=== PATIENT | female | born 1945 | race Caucasian/White ===

== ENCOUNTER 2017-08-11 19:24 | Emergency (ER) | payer MEDICARE ==
[2017-08-11 20:13] VITALS: BP 114/62
[2017-08-11] MEDS ORDERED: TYLENOL PO ONE (20:14)
--- NOTE | 2017-08-11 23:20 | Emergency Department Report ---
ED Extremity Problem HPI - General Chief complaint: Extremity Problem,Nontraumatic Stated complaint: RT SHOULDER PAIN Time Seen by Provider: 08/11/17 22:18 Source: patient, EMS Mode of arrival: Stretcher Limitations: Physical Limitation - History of Present Illness Initial comments: Patient is a 71-year-old [place] lady who had surgery yesterday on her right shoulder. Patient with who was at home today she feels though she moved her shoulder is worried that is dislocated again. Patient is taking pain medicines her main complaint today is not pain she is mostly sure shoulder is fine. Severity scale (0 -10): 9 - Related Data Allergies Allergy/AdvReac Type Severity Reaction Status Date / Time No Known Allergies Allergy Unverified 08/11/17 19:56 ED Review of Systems ROS: Stated complaint: RT SHOULDER PAIN Other details as noted in HPI Comment: All other systems reviewed and negative ED Past Medical Hx - Past Medical History Previous Medical History?: Yes Hx Hypertension: Yes Hx CVA: Yes (Right side deficits) Additional medical history: high cholesterol - Surgical History Past Surgical History?: Yes Additional Surgical History: Right shoulder sx 08/10/17 - Social History Smoking Status: Never Smoker Substance Use Type: None ED Physical Exam - General Limitations: Physical Limitation General appearance: alert, in no apparent distress - Head Head exam: Present: atraumatic, normocephalic - Eye Eye exam: Present: normal appearance - ENT ENT exam: Present: mucous membranes moist - Neck Neck exam: Present: normal inspection - Respiratory Respiratory exam: Present: normal lung sounds bilaterally. Absent: respiratory distress - Cardiovascular Cardiovascular Exam: Present: regular rate, normal rhythm. Absent: systolic murmur, diastolic murmur, rubs, gallop - GI/Abdominal GI/Abdominal exam: Present: soft, normal bowel sounds - Extremities Exam Extremities exam: Present: normal inspection (there is no deltoid deformity to the right shoulder is bandaged) - Back Exam Back exam: Present: normal inspection - Neurological Exam Neurological exam: Present: alert, oriented X3 - Psychiatric Psychiatric exam: Present: normal affect, normal mood - Skin Skin exam: Present: warm, dry, intact, normal color. Absent: rash ED Course Vital Signs 08/11/17 20:01 Temperature 97.9 F Pulse Rate 78 Respiratory 18 Rate Blood Pressure 114/62 O2 Sat by Pulse 95 Oximetry ED Medical Decision Making - Medical Decision Making I discussed with the patient that her x-ray looked within normal limits and was not dislocated patient and her friend who is here asking can she go to a rehabilitation or be transferred back to [facility] where she had her surgery forcefully would not be able to, even one of those requests at this time. Patient will be discharged home and is she is to contact her surgeon if she would like to have additional Critical care attestation.: If time is entered above; I have spent that time in minutes in the direct care of this critically ill patient, excluding procedure time. ED Disposition Clinical Impression: Shoulder pain Disposition: DC-01 TO HOME OR SELFCARE Is pt being admited?: No Does the pt Need Aspirin: No Condition: Stable Referrals: PRIMARY CARE, [Primary Care Provider] - 3-5 Days
--- NOTE | 2017-08-12 07:33 | XRay Report ---
FINAL REPORT PROCEDURE: XR SHOULDER 2+V RT TECHNIQUE: Right shoulder radiographs including AP views in internal and external rotation and abduction. CPT 45937 HISTORY: increased pain after surgery COMPARISON: No prior studies are available for comparison. FINDINGS: Fracture (s) and/or Dislocation(s): There is irregularity of the inferior glenoid region of the scapula. This may be sequelae from previous trauma. No prior studies are available for review.. Joint space(s): Mild narrowing of the joint spaces. Slight spur formation off the acromioclavicular joint. Soft tissues: Multiple skin dariana are identified consistent with recent surgery.. Bone mineralization: Normal . Foreign bodies: None . IMPRESSION: Postoperative shoulder radiograph with multiple skin dariana identified. Irregularity with lucency in the inferior glenoid region may represent sequelae from previous trauma. Correlation with previous radiograph should be entertained. Mild arthritis.
== END 2017-08-11 23:25 | disposition home or self-care (01) ==
LOC: ED 19:24
DX: M25.511 Pain in right shoulder (principal); I10 Essential (primary) hypertension; E78.00 Pure hypercholesterolemia, unspecified; Z86.73 Personal history of transient ischemic attack (TIA), and cerebral infarction without residual deficits
CPT/HCPCS: 99284

== ENCOUNTER 2017-10-15 12:13 | Emergency (ER) | payer MEDICARE ==
[2017-10-15 12:26] VITALS: BP 126/63
[2017-10-15] MEDS ORDERED: MOTRIN PO ONE (15:31)
--- NOTE | 2017-10-15 15:34 | Emergency Department Report ---
ED Extremity Problem HPI - General Chief complaint: Extremity Problem,Nontraumatic Stated complaint: POSSIBLE BLOOD CLOT Time Seen by Provider: 10/15/17 14:52 Source: patient, family Mode of arrival: Wheelchair Limitations: Language Barrier - History of Present Illness Initial comments: Interpretive service no medication taken for pain Patient here presented and reported that she was sent from Dr. Eddie Easton's office today to rule out DVT in her left leg. Patient states that she was on Plavix and had surgery in August and it took off her Plavix that has been 2 months since she has been off her Plavix. She has a history of CVA and this why she is on Plavix she has right sided deficit and she has a history of high blood pressure DVT, high cholesterol and she had right shoulder surgery 2017. Patient states she is flying to [place] next Wednesday and Dr. Easton sent over here to start her back on her Plavix. Denies any chest pain or shortness of breath. She reports pain 3 out of 10 to her left lower extremity. Denies any calf pain. Pain and swelling is below her left knee. Pain is achy and and worse with movement. Patient is here with her friend. Her friend report that since patient had surgery to her right shoulder she is in bed 22 hrs a day. MD Complaint: extremity pain, extremity swelling Onset/Timin -: year(s) Location: left, lower extremity History of Same: Yes -: Yes arthralgia, No fever, No associated dyspnea, No associated chest pain Radiation: none Severity scale (0 -10): 3 Quality: aching Consistency: intermittent Improves with: nothing Worsens with: weight bearing, walking Associated Symptoms: arthralgias. denies: denies other symptoms, chest pain, shortness of breath, fever, myalgias, rash - Related Data Previous Rx's Medication Instructions Recorded Last Taken Type Clopidogrel [Plavix] 75 mg PO QDAY 30 Days #30 tablet 10/15/17 Unknown Rx Allergies Allergy/AdvReac Type Severity Reaction Status Date / Time No Known Allergies Allergy Unverified 08/11/17 19:56 ED Review of Systems ROS: Stated complaint: POSSIBLE BLOOD CLOT Other details as noted in HPI Constitutional: denies: chills, fever Eyes: denies: eye pain, eye discharge, vision change ENT: denies: ear pain, throat pain Respiratory: denies: cough, shortness of breath, SOB with exertion, SOB at rest , wheezing Cardiovascular: edema. denies: chest pain, palpitations, syncope Gastrointestinal: denies: abdominal pain, nausea, diarrhea, constipation, hematemesis, melena, hematochezia Genitourinary: denies: urgency, dysuria, frequency, hematuria, discharge Musculoskeletal: joint swelling, arthralgia. denies: back pain Skin: denies: rash, lesions Neurological: weakness (right-sided weakness from stroke). denies: headache, numbness, paresthesias, confusion, abnormal gait, vertigo ED Past Medical Hx - Past Medical History Previous Medical History?: Yes Hx Hypertension: Yes Hx CVA: Yes (Right side deficits) Additional medical history: high cholesterol - Surgical History Past Surgical History?: Yes Additional Surgical History: Right shoulder sx 08/10/17 - Family History Family history: hypertension - Social History Smoking Status: Never Smoker Substance Use Type: None - Medications Home Medications: Home Medications Medication Instructions Recorded Confirmed Last Taken Type Clopidogrel [Plavix] 75 mg PO QDAY 30 Days #30 tablet 10/15/17 Unknown Rx ED Physical Exam - General Limitations: Language Barrier General appearance: alert, in no apparent distress - Head Head exam: Present: atraumatic, normocephalic, normal inspection - Eye Eye exam: Present: normal appearance, PERRL, EOMI. Absent: nystagmus, periorbital swelling, periorbital tenderness Pupils: Present: normal accommodation - ENT ENT exam: Present: normal exam, normal orophraynx, mucous membranes moist, TM's normal bilaterally, normal external ear exam - Neck Neck exam: Present: normal inspection, full ROM. Absent: tenderness, lymphadenopathy - Respiratory Respiratory exam: Present: normal lung sounds bilaterally. Absent: respiratory distress, chest wall tenderness - Cardiovascular Cardiovascular Exam: Present: regular rate, normal rhythm, normal heart sounds. Absent: systolic murmur, diastolic murmur - GI/Abdominal GI/Abdominal exam: Present: soft, normal bowel sounds. Absent: distended, tenderness, guarding, rebound, rigid - Extremities Exam Extremities exam: Present: normal inspection, full ROM, tenderness (tenderness anteriorly), normal capillary refill, joint swelling ( below the left knee most swelling to left knee), other (No cce. + 2 pulses in all extremities, no neurovascular compromise). Absent: pedal edema, calf tenderness - Expanded Lower Extremity Exam Left Hip exam: Present: normal inspection, full ROM, pelvic stability. Absent: tenderness, swelling, abrasion, laceration, ecchymosis, deformity, crepidus, dislocation, erythema, external rotation, internal rotation, shortening Upper Leg exam: Present: normal inspection, full ROM. Absent: tenderness, swelling, abrasion, laceration, ecchymosis, deformity, crepidus, dislocation, erythema Knee exam: Present: normal inspection, full ROM, tenderness (left knee tenderness), swelling (mild swelling to left knee), effusion (mild effusion), full knee extension. Absent: abrasion, laceration, ecchymosis, deformity, crepidus, dislocation, erythema, pain w/ pronation/supination, posterior draw sign, pain/laxity with valgus, pain/laxity with varus Lower Leg exam: Present: normal inspection, full ROM, tenderness (no tenderness below left knee), swelling (mouth swelling below left knee). Absent: abrasion, laceration, ecchymosis, deformity, crepidus, dislocation, erythema, palpable cord, Jackie's sign Ankle exam: Present: normal inspection, full ROM. Absent: tenderness, swelling , abrasion, laceration, ecchymosis, deformity, crepidus, dislocation, erythema, anterior draw sign Foot/Toe exam: Present: normal inspection, full ROM. Absent: tenderness, swelling, abrasion, laceration, ecchymosis, deformity, crepidus, dislocation, erythema, amputation, puncture wound, foreign body, calcaneal tenderness, tenderness at base of 5th metatarsal, nail avulsion, subungual hematoma Neuro vascular tendon exam: Present: no vascular compromise. Absent: pulse deficit, abnormal cap refill, motor deficit, sensory deficit, tendon deficit, extremity cold to touch, pallor, abnormal 2-point discrimination, decreased fine /light touch, foot drop, significant pain with passive ROM of distal joint Gait: Positive: observed and limited by pain - Back Exam Back exam: Present: normal inspection, full ROM. Absent: tenderness, CVA tenderness (R), CVA tenderness (L), muscle spasm, paraspinal tenderness, vertebral tenderness, rash noted - Neurological Exam Neurological exam: Present: alert, oriented X3, abnormal gait (due to right sided weakness from previous stroke), reflexes normal - Psychiatric Psychiatric exam: Present: normal affect, normal mood - Skin Skin exam: Present: warm, dry, intact, normal color. Absent: rash ED Course Vital Signs 10/15/17 12:17 Temperature 97.9 F Pulse Rate 83 Respiratory 16 Rate Blood Pressure 126/63 O2 Sat by Pulse 94 Oximetry - Reevaluation(s) Reevaluation #1: 10/15/17 15:39 Patient received Motrin 800 mg by mouth for left leg pain. ED Medical Decision Making - Radiology Data Radiology results: report reviewed CHAD SAMSON [facility] : 1945 [id number] 10/15/17 13:11 - Radiology Dept. Note by JCARLOS BANUELOS [facility] Num: [id number] : 1945 Patient Age: 71 VASCULAR LAB.PRELIMINARY REPORT. LLE VENOUS DUPLEX DONE. NO EVIDENCE OF DVT/SVT IN VESSELS VISUALIZED. SOFT TISSUE CHANGES SEEN IN THE LT.KNEE. Initialized on 10/15/17 13:11 - END OF NOTE - Medical Decision Making This is a 71-year-old patient brought to the hospital by her friend who reports the patient had right shoulder surgery in July 2017 and since then she states of the bed 22 hours a day. She said the patient is pretty independent but she just does not want to get up and walk around and patient called him and told her that her leg was hurting and he needs to go the hospital. Patient went to Dr. Eddie Easton who sent him to the emergency room to get ultrasound. Patient has a history of stroke with right-sided deficit and she was on Plavix which they stopped before surgery and she reports that they never restarted her surgery so she said Dr. Easton wanted her to have an ultrasound because she is at high risk that she struggling to [place] next Wednesday and also wants her Plavix to be started back. She is complaining of left leg pain with some swelling and proximally. Denies any injury. I saw and examined patient and she has minimal swelling to her left leg will appear to right leg. She has no clubbing, cyanosis. Extremities. Minimal edema to left lower extremity. Pulses are 2+ and bounding to both feet. No neurovascular compromise. Leg is nontender to palpate to include calf. She has left knee swelling with minimal tenderness and she has full range of motion to her left knee. Patient had ultrasound venous Doppler left lower extremity which shows no SVT or DVT. I communicated this to the patient and her friend and she voiced understanding. I spoke with Dr. Eddie Easton via phone and he said the patient was taken off her Plavix and they forgot to put her back on the Plavix because she has a history of stroke and she has high risk for DVT so he wants her back on Plavix 75 mg daily. I discussed this patient and she is satisfied. Left extremity pain and swelling-ultrasound report is negative for DVT or SVT. Patient to follow-up with Dr. Easton in [address] Easton. Patient will be placed back on her Plavix 75 mg daily. She had milligrams by mouth 1 given in the emergency room and will discharge home and Motrin Patient discharged home with her friend in stable condition. Her vital signs stable she is afebrile. She is not experiencing any pain at present. She was given Motrin 800 mg when necessary emergency room for left lower extremity pain which resolved her pain. She understands that she is to follow-up with Dr. Easton in Wednesday. I also instructed patient that she needs to be active and get off of the bed and walk around because being in bed for 22 hours per day put her at higher risk for developing a blood clot so she needs to go for walks and move her legs regularly and she voiced understanding. Prescription given for Plavix - Differential Diagnosis DVT, strain, sprain, MSK pain, arthritis, convalescent Critical care attestation.: If time is entered above; I have spent that time in minutes in the direct care of this critically ill patient, excluding procedure time. ED Disposition Clinical Impression: Swelling of left lower extremity, Arthralgia of left lower leg Disposition: DC-01 TO HOME OR SELFCARE Is pt being admited?: No Does the pt Need Aspirin: No Condition: Stable Instructions: Arthralgia (ED), Leg Edema (ED) Additional Instructions: Please follow up with Dr. Eddie Easton in 3 days. Start taking Plavix this evening Increase her fluid intake Prescriptions: Clopidogrel [Plavix] 75 mg PO QDAY 30 Days #30 tablet Referrals: EDDIE EASTON MD [Primary Care Provider] - 10/18/17 Forms: Accompanied Note
--- NOTE | 2017-10-19 08:21 | Vascular Lab Report ---
Left Lower Extremity Venous Duplex Study: Reason for Exam: Pain and swelling of the left lower extremity. Comments on the Right: A limited duplex study was done of the proximal veins of the right lower extremity. All veins visualized are freely compressible without evidence of internal echogenicity. Flow is spontaneous and phasic throughout. No evidence of acute or chronic thrombus is seen in any of the vessels visualized. Comments on the Left: All veins visualized are freely compressible without evidence of internal echogenicity. Flow is spontaneous and phasic throughout. No evidence of acute or chronic thrombus is seen in any of the vessels visualized. A soft tissue change in the left knee area is consistent with a Coker's cyst. Impression: No evidence of acute or chronic deep venous thrombosis in the left lower extremity. A soft tissue change in the left knee area is consistent with a Coker's cyst.
== END 2017-10-15 15:58 | disposition home or self-care (01) ==
LOC: ED 12:13
DX: R22.42 Localized swelling, mass and lump, left lower limb (principal); I10 Essential (primary) hypertension; E78.00 Pure hypercholesterolemia, unspecified; Z86.73 Personal history of transient ischemic attack (TIA), and cerebral infarction without residual deficits

== ENCOUNTER 2019-02-21 12:12 | Emergency (ER) | payer MEDICARE ==
[2019-02-21 12:46] VITALS: BP 127/58
--- NOTE | 2019-02-21 12:47 | Event Note ---
ED Screening Note Date of service: 02/21/19 Time: 12:46 ED Screening Note: 73 y o female presents with lower back pain s/p fall x 5 days ago with worsening pain This initial assessment/diagnostic orders/clinical plan/treatment(s) is/are subject to change based on patients health status, clinical progression and re- assessment by fellow clinical providers in the ED. Further treatment and workup at subsequent clinical providers discretion. Patient/guardian urged not to elope from the ED as their condition may be serious if not clinically assessed and managed. Initial orders include: ct lumbar acc eval
--- NOTE | 2019-02-21 16:18 | Cat Scan Report ---
CT LUMBAR SPINE WITHOUT CONTRAST INDICATION: pain after fall. TECHNIQUE: Axial imaging performed through the lower spine without the use of contrast. Sagittal an d coronal reconstructed images were also reviewed. All CT scans at this location are performed using CT dose reduction for ALARA by means of automated exposure control. COMPARISON: None FINDINGS: Alignment: There is straightening of the normal lordosis. 4 mm anterolisthesis of L3 with respect to L4 is identified which appears to be secondary to degenerative facet arthropathy. The remaining lumb ar vertebra are normal alignment. Bones: Acute superior endplate deformity of L1 is identified with tenderness 20% loss of height. The re is mild retropulsion of the posterior wall of L1 but no significant central canal narrowing at thi s level. No other fractures are identified. Moderate multilevel discogenic disc disease and facet ar thropathy is identified. A large diffuse posterior bulging disc is identified at L4-5 resulting in mo derate central canal narrowing. Soft tissues: No acute or significant incidental soft tissue abnormality. IMPRESSION: L1 superior endplate fracture as described. Moderate multilevel lumbar spondylosis. Signer Name: Sree Eckert Jr, MD Signed: 02/21/2019 4:14 PM Workstation Name: [id number]
[2019-02-21] MEDS ORDERED: HYDROcodone/ACETAMINOPHEN 5-325 MG TAB PO ONE (16:35)
[2019-02-21] MEDS ORDERED: ONDANSETRON 4 MG ODT TAB PO ONE (16:35)
--- NOTE | 2019-02-21 16:44 | Emergency Department Report ---
<COBY GARCÍA - Last Filed: 02/21/19 16:40> ED General Adult HPI - General Chief complaint: Fall Stated complaint: BACK PAIN/FALL Time Seen by Provider: 02/21/19 15:05 Source: patient, family Mode of arrival: Ambulatory Limitations: Language Barrier - History of Present Illness Initial comments: 43-year-old female patient complains of low back pain after a fall 5 days ago. She denies any head trauma or loss of consciousness. Patient's son is translating and states she lost her footing. Patient normally ambulates with a walker and states she is still able to ambulate, but has some difficulty due to the pain in her back. She states the pain in her back worsens with bending and with walking. She denies any loss of bladder/bowel control, numbness/weakness/tingling in her legs, hematochezia/hematuria, or inability to move legs. Patient states Tylenol is not helping with her pain. She denies any other pain or injuries -: Sudden Radiation: non-radiation Consistency: constant Improves with: immobilization Worsens with: movement Associated Symptoms: denies other symptoms Treatments Prior to Arrival: other - Related Data Previous Rx's Medication Instructions Recorded Last Taken Type Clopidogrel [Plavix] 75 mg PO QDAY 30 Days #30 tablet 10/15/17 Unknown Rx Acetaminophen/Codeine [Tylenol 1 tab PO Q8H PRN #10 tab 02/21/19 Unknown Rx /Codeine # 3 tab] Allergies Allergy/AdvReac Type Severity Reaction Status Date / Time No Known Allergies Allergy Verified 02/21/19 12:19 ED Review of Systems Comment: All other systems reviewed and negative Musculoskeletal: back pain ED Past Medical Hx - Past Medical History Previous Medical History?: Yes Hx Hypertension: Yes Hx CVA: Yes (Right side deficits) Additional medical history: high cholesterol - Surgical History Past Surgical History?: Yes Additional Surgical History: Right shoulder sx 08/10/17 - Social History Smoking Status: Never Smoker Substance Use Type: None - Medications Home Medications: Home Medications Medication Instructions Recorded Confirmed Last Taken Type Clopidogrel [Plavix] 75 mg PO QDAY 30 Days #30 tablet 10/15/17 Unknown Rx Acetaminophen/Codeine [Tylenol 1 tab PO Q8H PRN #10 tab 02/21/19 Unknown Rx /Codeine # 3 tab] ED Physical Exam - General Limitations: Language Barrier General appearance: alert, in no apparent distress - Head Head exam: Present: atraumatic, normocephalic - Eye Eye exam: Present: normal appearance. Absent: scleral icterus - Neck Neck exam: Present: normal inspection, full ROM. Absent: tenderness - Respiratory Respiratory exam: Present: normal lung sounds bilaterally. Absent: respiratory distress - Cardiovascular Cardiovascular Exam: Present: regular rate, normal rhythm. Absent: systolic murmur, diastolic murmur, rubs, gallop - GI/Abdominal GI/Abdominal exam: Present: soft, normal bowel sounds. Absent: tenderness - Extremities Exam Extremities exam: Present: normal inspection. Absent: joint swelling - Back Exam Back exam: Absent: paraspinal tenderness, vertebral tenderness - Neurological Exam Neurological exam: Present: alert, oriented X3, normal gait. Absent: motor sensory deficit - Expanded Neurological Exam Expanded Speech: Present: fluid speech Cerebellar function: Heel to Benitez: Normal, Romberg: Normal Sensory exam: Upper Extremity Light Touch: Normal, Lower Extremity Light Touch: Normal Motor strength exam: RUE: 5, LUE: 5, RLE: 5, LLE: 5 - Psychiatric Psychiatric exam: Present: normal affect, normal mood - Skin Skin exam: Present: warm, dry, intact, normal color. Absent: rash ED Medical Decision Making - Radiology Data Radiology results: report reviewed CT LUMBAR SPINE WITHOUT CONTRAST INDICATION: pain after fall. TECHNIQUE: Axial imaging performed through the lower spine without the use of contrast. Sagittal and coronal reconstructed images were also reviewed. All CT scans at this location are performed using CT dose reduction for ALARA by means of automated exposure control. COMPARISON: None FINDINGS: Alignment: There is straightening of the normal lordosis. 4 mm anterolisthesis of L3 with respect to L4 is identified which appears to be secondary to degenerative facet arthropathy. The remaining lumbar vertebra are normal alignment. Bones: Acute superior endplate deformity of L1 is identified with tenderness 20% loss of height. There is mild retropulsion of the posterior wall of L1 but no significant central canal narrowing at this level. No other fractures are identified. Moderate multilevel discogenic disc disease and facet arthropathy is identified. A large diffuse posterior bulging disc is identified at L4-5 resulting in moderate central canal narrowing. Soft tissues: No acute or significant incidental soft tissue abnormality. IMPRESSION: L1 superior endplate fracture as described. Moderate multilevel lumbar spondylosis. - Medical Decision Making 73-year-old female patient here today with back pain after a fall 5 days ago. Neuro exam is WNL. Patient denies any red flag symptoms. CT lumbar shows L1 endplate fracture without any significant central canal stenosis at this level, however moderate canal stenosis seen at L4-L5. Will discharge home with neurosurgery follow-up. Discussed increased risk of fall with narcotic pain medication and importance of monitoring patient closely after taking pain medication. Discussed in great detail symptoms that should prompt return to the ED including loss of sensation in legs, weakness in legs, loss of bladder/bowel control, or inability to ambulate-Pt's son states understanding. ED Disposition Clinical Impression: Compression fracture of L1 vertebra Qualifiers: Encounter type: initial encounter Qualified Code(s): S32.010A - Wedge compression fracture of first lumbar vertebra, initial encounter for closed fracture Disposition: TO HOME OR SELFCARE Is pt being admited?: No Condition: Stable Instructions: Thoracolumbar Fracture (ED) Additional Instructions: Please follow-up with the neurosurgeon within 2-3 days. Please caution drowsiness caused by prescribed pain medication (Tylenol No. 3), this may increase patient's risk for falling as discussed. If the patient develops any loss of sensation or weakness in her legs, trouble starting or stopping urination or defecation, blood in her urine or stools, or inability to move legs weak immediate emergency care Prescriptions: Acetaminophen/Codeine [Tylenol /Codeine # 3 tab] 1 tab PO Q8H PRN #10 tab PRN Reason: Pain , Severe (7-10) Referrals: ESPINOZA WILSON MD [Staff Physician] - 3-5 Days MOLLY ANDERSEN MD [Staff Physician] - 2-3 Days <SEPIDEH KIM S - Last Filed: 02/21/19 17:53> ED Review of Systems ROS: Stated complaint: BACK PAIN/FALL Other details as noted in HPI ED Course Vital Signs 02/21/19 12:44 Temperature 98 F Pulse Rate 86 Respiratory 20 Rate Blood Pressure 127/58 O2 Sat by Pulse 98 Oximetry ED Medical Decision Making - Medical Decision Making I saw this patient as well regarding her recent fall in the CT scan finding of an L1 compression fracture with 20% height loss. There is no sign of any involvement of the central canal. The patient does not have any problems with bowel or bladder, numbness or paresthesias or any acute weakness. I spoke to the patient's son in great detail regarding the imaging results, the plan for outpatient follow-up with a orthopedic spinal physician, pain control. They understand the signs or symptoms for which they should have immediate return to the emergency department or call 911. All questions have been answered and he verbalized understanding. Critical care attestation.: If time is entered above; I have spent that time in minutes in the direct care of this critically ill patient, excluding procedure time. ED Disposition Is pt being admited?: No
== END 2019-02-21 17:53 | disposition home or self-care (01) ==
LOC: ED 12:12
DX: S32.010A Wedge compression fracture of first lumbar vertebra, initial encounter for closed fracture (principal); I10 Essential (primary) hypertension; I63.9 Cerebral infarction, unspecified; Z98.890 Other specified postprocedural states; Z79.899 Other long term (current) drug therapy; X58.XXXA Exposure to other specified factors, initial encounter; Y93.89 Activity, other specified; Y92.89 Other specified places as the place of occurrence of the external cause; Y99.8 Other external cause status
CPT/HCPCS: 72131; Q0162

== ENCOUNTER 2019-10-29 12:20 | Observation (INO) | payer MEDICARE ==
--- NOTE | 2019-10-29 13:02 | Emergency Department Report ---
ED Neuro Deficit HPI - General Stated Complaint: POSS STROKE Time Seen by Provider: 10/29/19 12:35 - History of Present Illness Initial Comments: This is a 73-year-old female who has experienced stroke symptoms for 24+ hours per paramedics transporting. They state that the patient was found to have left-sided weakness since noon yesterday. They noted the same and route to the hospital. The patient is partially able to communicate both in Bengali and [place]yan. I do not have any family to provide history at the time of my encounter. Paramedics did not activate a code stroke system due to the 24+ hour last known well time. Medics state patient has had a recent hospitalization here. Review the patient's recent hospitalization indicates: 73-year-old female presents to ED for evaluation of confusion. Patient seen and evaluated in the emergency department. Lab and imaging studies reviewed. Patient admitted to medical floor due to increased risk of decompensation. Patient found to have clinical findings consistent with acute metabolic encephalopathy. Patient treated with IV fluid resuscitation therapy and supportive care. Patient found to have unilateral leg swelling. Vascular surgery service consulted. Patient underwent arterial and venous studies which revealed peripheral vascular disease. Patient convalesced well during hospital course with mild daily improvement. Patient medically optimized on the day of discharge. Patient seen and evaluated with no significant new physical exam findings. Patient medically optimized and back to usual state of health and was subsequently discharged home. Patient instructed to follow-up with primary care physician within 1 week and to resume all prehospital medications. Patient to follow-up with vascular surgery service as outpatient for further evaluation and testing. 35 minutes dedicated to patient discharge and coordination of care. Disposition: - TO HOME OR SELFCARE - Discharge Diagnoses (1) Peripheral vascular disease Status: Acute (2) Acute encephalopathy Status: Acute (3) Peripheral neuropathy Status: Chronic Qualifiers: Peripheral neuropathy type: polyneuropathy, unspecified Qualified Code(s): G62.9 - Polyneuropathy, unspecified Record does indicate the patient had some gait disturbance during her previous hospitalization. A CT of her head showed no evidence of acute infarct. -: days(s) Location: left arm, left leg Presenting Symptoms: Present: Weak/Paralyzed One Side History of same: No Place: home Severity: severe Quality: weak Improves With: none Worsens With: none On Anticoagulants: No Context: other (Unknown) Associated Symptoms: other (Limited historian) - Related Data Home Medications: Home Medications Medication Instructions Recorded Confirmed Last Taken AtorvaSTATin [Lipitor] 10 mg PO QHS 10/20/19 10/20/19 Unknown Ergocalciferol (Vitamin D2) 50,000 unit PO QWEEK 10/20/19 10/20/19 Unknown [Vitamin D2] Gabapentin [Neurontin] 200 mg PO BID 10/20/19 10/20/19 Unknown HYDROcodone/APAP 7.5-325 [[place] 7.5 mg PO Q12HR PRN 10/20/19 10/20/19 Unknown 7.5-325 mg TAB] Losartan [Cozaar] 50 mg PO DAILY 10/20/19 10/20/19 Unknown Nortriptyline [Pamelor] 10 mg PO QHS 10/20/19 10/20/19 Unknown Allergies/Adverse Reactions: Allergies Allergy/AdvReac Type Severity Reaction Status Date / Time No Known Allergies Allergy Verified 10/29/19 12:56 ED Review of Systems ROS: Stated complaint: POSS STROKE Other details as noted in HPI Comment: Unobtainable due to pts medical conditions ED Past Medical Hx - Past Medical History Hx Hypertension: Yes Hx CVA: Yes (Right side deficits) Additional medical history: high cholesterol - Surgical History Additional Surgical History: Right shoulder sx 08/10/17 - Social History Smoking Status: Never Smoker - Medications Home Medications: Home Medications Medication Instructions Recorded Confirmed Last Taken Type AtorvaSTATin [Lipitor] 10 mg PO QHS 10/20/19 10/20/19 Unknown History Ergocalciferol (Vitamin D2) 50,000 unit PO QWEEK 10/20/19 10/20/19 Unknown History [Vitamin D2] Gabapentin [Neurontin] 200 mg PO BID 10/20/19 10/20/19 Unknown History HYDROcodone/APAP 7.5-325 [[place] 7.5 mg PO Q12HR PRN 10/20/19 10/20/19 Unknown History 7.5-325 mg TAB] Losartan [Cozaar] 50 mg PO DAILY 10/20/19 10/20/19 Unknown History Nortriptyline [Pamelor] 10 mg PO QHS 10/20/19 10/20/19 Unknown History ED Neuro Physical Exam - General Limitations: Physical Limitation General appearance: alert, in no apparent distress Suspected Stroke: Yes - Head Head exam: Present: atraumatic, normocephalic - Eye Eye exam: Present: normal appearance - ENT ENT exam: Present: mucous membranes moist, other (Facial asymmetry/paresis) - Neck Neck exam: Present: normal inspection. Absent: meningismus - Respiratory Respiratory exam: Present: normal lung sounds bilaterally. Absent: respiratory distress - Cardiovascular Cardiovascular Exam: Present: regular rate, normal rhythm. Absent: systolic murmur, diastolic murmur, rubs, gallop - GI/Abdominal GI/Abdominal exam: Present: soft, normal bowel sounds. Absent: distended, tenderness, guarding, rebound - Extremities Exam Extremities exam: Present: normal inspection, other (No acute deformity) - Back Exam Back exam: Present: other - Neurological Exam Neurological exam: Present: alert. Absent: CN II-XII intact, motor sensory deficit - NIHSS Assessment Interval: Baseline 1a. Level of Consciousness: alert/keenly responsive 1b. LOC Questions: answers 1 question correctly 1c. LOC Commands: performs 1 task correctly 2. Best Gaze: normal 3. Visual: no visual loss (Not obvious) 4. Facial Palsy: minor paralysis 5b. Motor Arm Right: no drift 5a. Motor Arm Left: no gravity effort 6a. Motor Leg Left: no gravity effort 6b. Motor Leg Right: no drift 7. Limb Ataxia: absent 8. Sensory: mild/moderate sensory loss 9. Best Language: mild/moderate aphasia 10. Dysarthria: mild/moderate dysarthria 11. Extinction/Inattention: no abnormality Total Score: 12 Stroke Severity: Moderate Stroke - Psychiatric Psychiatric exam: Present: normal affect, normal mood - Skin Skin exam: Present: warm, dry, intact, normal color. Absent: rash ED Course Vital Signs 10/29/19 10/29/19 10/29/19 12:52 12:57 13:00 Temperature 98.6 F Pulse Rate 83 Respiratory 18 17 Rate Blood Pressure 153/69 Blood Pressure [Right] O2 Sat by Pulse 100 100 100 Oximetry 10/29/19 10/29/19 10/29/19 13:04 13:15 13:30 Temperature Pulse Rate 76 84 Respiratory 17 17 Rate Blood Pressure 157/58 159/53 Blood Pressure 166/66 [Right] O2 Sat by Pulse 100 100 Oximetry 10/29/19 10/29/19 13:51 14:00 Temperature Pulse Rate Respiratory Rate Blood Pressure 159/53 164/66 Blood Pressure [Right] O2 Sat by Pulse 100 100 Oximetry - Reevaluation(s) Reevaluation #1: Discussed with Dr. Duarte. Admit to hospitalist service. 10/29/19 15:06 - Lab Data Result diagrams: 10/29/19 14:25 10/29/19 14:25 Lab Results 10/29/19 10/29/19 10/29/19 Range/Units 14:25 14:25 14:25 WBC 9.1 (4.5-11.0) K/mm3 RBC 4.81 (3.65-5.03) M/mm3 Hgb 14.7 H (10.1-14.3) gm/dl Hct 45.0 H (30.3-42.9) % MCV 93 (79-97) fl MCH 31 (28-32) pg MCHC 33 (30-34) % RDW 14.8 (13.2-15.2) % Plt Count 179 (140-440) K/mm3 Lymph % (Auto) 14.5 (13.4-35.0) % [place] % (Auto) 7.9 H (0.0-7.3) % Eos % (Auto) 0.3 (0.0-4.3) % Baso % (Auto) 0.2 (0.0-1.8) % Lymph # 1.3 (1.2-5.4) K/mm3 [place] # 0.7 (0.0-0.8) K/mm3 Eos # 0.0 (0.0-0.4) K/mm3 Baso # 0.0 (0.0-0.1) K/mm3 Seg Neutrophils % 77.1 H (40.0-70.0) % Seg Neutrophils # 7.0 (1.8-7.7) K/mm3 PT 12.5 (12.2-14.9) Sec. INR 0.92 (0.87-1.13) APTT 29.5 (24.2-36.6) Sec. Thrombin Time (15.1-19.6) Sec. Sodium 138 (137-145) mmol/L Potassium 3.8 (3.6-5.0) mmol/L Chloride 101.3 (98-107) mmol/L Carbon Dioxide 23 (22-30) mmol/L Anion Gap 18 mmol/L BUN 26 H (7-17) mg/dL Creatinine 0.3 L (0.6-1.2) mg/dL Estimated GFR > 60 ml/min BUN/Creatinine Ratio 87 % Glucose 120 H (65-100) mg/dL Calcium 9.1 (8.4-10.2) mg/dL Troponin T < 0.010 (0.00-0.029) ng/mL 10/29/19 Range/Units 14:25 WBC (4.5-11.0) K/mm3 RBC (3.65-5.03) M/mm3 Hgb (10.1-14.3) gm/dl Hct (30.3-42.9) % MCV (79-97) fl MCH (28-32) pg MCHC (30-34) % RDW (13.2-15.2) % Plt Count (140-440) K/mm3 Lymph % (Auto) (13.4-35.0) % [place] % (Auto) (0.0-7.3) % Eos % (Auto) (0.0-4.3) % Baso % (Auto) (0.0-1.8) % Lymph # (1.2-5.4) K/mm3 [place] # (0.0-0.8) K/mm3 Eos # (0.0-0.4) K/mm3 Baso # (0.0-0.1) K/mm3 Seg Neutrophils % (40.0-70.0) % Seg Neutrophils # (1.8-7.7) K/mm3 PT (12.2-14.9) Sec. INR (0.87-1.13) APTT (24.2-36.6) Sec. Thrombin Time 14.8 L (15.1-19.6) Sec. Sodium (137-145) mmol/L Potassium (3.6-5.0) mmol/L Chloride (98-107) mmol/L Carbon Dioxide (22-30) mmol/L Anion Gap mmol/L BUN (7-17) mg/dL Creatinine (0.6-1.2) mg/dL Estimated GFR ml/min BUN/Creatinine Ratio % Glucose (65-100) mg/dL Calcium (8.4-10.2) mg/dL Troponin T (0.00-0.029) ng/mL Laboratory Results - last 24 hr 10/29/19 14:25 WBC 9.1 RBC 4.81 Hgb 14.7 H Hct 45.0 H MCV 93 MCH 31 MCHC 33 RDW 14.8 Plt Count 179 Lymph % (Auto) 14.5 [place] % (Auto) 7.9 H Eos % (Auto) 0.3 Baso % (Auto) 0.2 Lymph # 1.3 [place] # 0.7 Eos # 0.0 Baso # 0.0 Seg Neutrophils % 77.1 H Seg Neutrophils # 7.0 Laboratory Results - last 24 hr 10/29/19 10/29/19 10/29/19 14:25 14:25 14:25 WBC 9.1 RBC 4.81 Hgb 14.7 H Hct 45.0 H MCV 93 MCH 31 MCHC 33 RDW 14.8 Plt Count 179 Lymph % (Auto) 14.5 [place] % (Auto) 7.9 H Eos % (Auto) 0.3 Baso % (Auto) 0.2 Lymph # 1.3 [place] # 0.7 Eos # 0.0 Baso # 0.0 Seg Neutrophils % 77.1 H Seg Neutrophils # 7.0 PT 12.5 INR 0.92 APTT 29.5 Thrombin Time Sodium 138 Potassium 3.8 Chloride 101.3 Carbon Dioxide 23 Anion Gap 18 BUN 26 H Creatinine 0.3 L Estimated GFR > 60 BUN/Creatinine Ratio 87 Glucose 120 H Calcium 9.1 Troponin T < 0.010 10/29/19 14:25 WBC RBC Hgb Hct MCV MCH MCHC RDW Plt Count Lymph % (Auto) [place] % (Auto) Eos % (Auto) Baso % (Auto) Lymph # [place]oshone # Eos # Baso # Seg Neutrophils % Seg Neutrophils # PT INR APTT Thrombin Time 14.8 L Sodium Potassium Chloride Carbon Dioxide Anion Gap BUN Creatinine Estimated GFR BUN/Creatinine Ratio Glucose Calcium Troponin T - EKG Data -: EKG Interpreted by Ok EKG shows normal: sinus rhythm, axis, intervals, QRS complexes, ST-T waves Rate: normal, tachycardia, bradycardia Interpretation: no acute changes - Radiology Data Radiology results: report reviewed, image reviewed IMPRESSION: 1. No acute intracranial abnormality. 2. Generalized cerebral volume loss and sequela of chronic microvascular ischemia, worse on the right. Chest x-ray no acute process - Thrombolytic Inclusion/Exclusion Thrombolytic Exclusion Criteria: Symptom Onset > 3 Hours Critical care attestation.: If time is entered above; I have spent that time in minutes in the direct care of this critically ill patient, excluding procedure time. ED Disposition Clinical Impression: CVA (cerebral vascular accident) Qualifiers: CVA mechanism: unspecified Qualified Code(s): I63.9 - Cerebral infarction, unspecified Disposition: DC-09 OP ADMIT IP TO THIS HOSP Is pt being admited?: Yes Does the pt Need Aspirin: Yes Condition: Stable Time of Disposition: 15:06
--- NOTE | 2019-10-29 13:14 | XRay Report ---
CHEST 1 VIEW INDICATION: hypertension. COMPARISON: 2019 FINDINGS: Support devices: None. Heart: Stable mild cardiomegaly. Aorta remains tortuous and ectatic. Lungs/Pleura: No acute air space or interstitial disease. Additional findings: None. IMPRESSION: Stable chest. Signer Name: Les Caban MD Signed: 10/29/2019 1:10 PM Workstation Name: [id number]
--- NOTE | 2019-10-29 14:17 | Cat Scan Report ---
CT head/brain wo con INDICATION: neuro deficits <6hrs or sx present upon awakening. TECHNIQUE: Routine CT head without contrast. All CT scans at this location are performed using CT dos e reduction for ALARA by means of automated exposure control. COMPARISON: CT head without contrast 10/20/2019 FINDINGS: BRAIN / INTRACRANIAL CONTENTS: Generalized cerebral volume loss results in sulcal widening and compen satory enlargement of the ventricles without hydrocephalus. Sequela of chronic microvascular ischemia is present and worse on the right. No acute major vascular territory infarct, hemorrhage, or parench ymal mass. ORBITS: No significant abnormality of visualized orbits. SINUSES / MASTOIDS: No significant abnormality of visualized sinuses and mastoid air cells. ADDITIONAL FINDINGS: None. IMPRESSION: 1. No acute intracranial abnormality. 2. Generalized cerebral volume loss and sequela of chronic microvascular ischemia, worse on the right . Signer Name: Miki Ray MD Signed: 10/29/2019 2:13 PM Workstation Name: [id number]
[2019-10-29 14:44] LABS: Basophils % (Auto) 0.2 % (0.0-1.8); Eosinophils % (Auto) 0.3 % (0.0-4.3); Hemoglobin 14.7 gm/dl (10.1-14.3); Lymphocytes # (Auto) 1.3 K/mm3 (1.2-5.4); Lymphocytes % (Auto) 14.5 % (13.4-35.0); Mean Corpuscular HGB Conc 33 % (30-34); Mean Corpuscular Volume 93 fl (79-97); Monocytes # (Auto) 0.7 K/mm3 (0.0-0.8); Monocytes % (Auto) 7.9 % (0.0-7.3); Platelet Count 179 K/mm3 (140-440); Red Blood Count 4.81 M/mm3 (3.65-5.03); Red Cell Distribution Width 14.8 % (13.2-15.2)
[2019-10-29 14:51] LABS: Partial Thromboplastin Time 29.5 Sec. (24.2-36.6)
[2019-10-29 14:53] LABS: INR 0.92 (0.87-1.13)
[2019-10-29 15:03] LABS: Blood Urea Nitrogen 26 mg/dL (7-17); Calcium 9.1 mg/dL (8.4-10.2); Hemolysis Index 14
[2019-10-29 15:04] LABS: BUN/Creatinine Ratio 87
[2019-10-29 15:05] LABS: Alanine Aminotransferase 23 units/L (7-56); Albumin 3.8 g/dL (3.9-5)
[2019-10-29] MEDS ORDERED: ASPIRIN 300 MG RECT SUPP PR ONE (15:07)
[2019-10-29 15:19] LABS: Bilirubin,Direct < 0.2 mg/dL (0-0.2)
--- NOTE | 2019-10-29 16:29 | History and Physical Report ---
History of Present Illness Chief complaint: I feel sick History of present illness: 73 YO Female with HTN, CVA with RHP, Dementia, HLD presents to ED for evaluation. Patient states that "I feel sick". No additional history obtainable. Patient family reports that patient has experienced new onset left arm weakness, and slurred speech that began on yesterday around 1200 hrs. EMS notified and upon arrival the patient was found to be in distress. A code stroke was called and the patient was subsequently transported to [facility] for further care and evaluation of the aforementioned symptoms. Patient seen and evaluated in the emergency department. Lab and imaging studies reviewed. Patient found to have clinical symptoms consistent with CVA and was admitted to medical floor and initiated on stroke protocol. Patient is outside the therapeutic window for TPA. No further history obtainable. Prior admission on 10/22/2019 reviewed. All medication listed at time of admission has been reconciled. Advanced care planning conducted in the emergency department. Patient is confused at the time of my exam but has a positive gag reflex and is able to protect her airway without difficulty. Past History Past Medical History: hypertension, hyperlipidemia, stroke Past Surgical History: Other (Right shoulder surgery) Social history: single, lives with family. denies: smoking, alcohol abuse, prescription drug abuse Family history: hypertension Medications and Allergies Allergies Allergy/AdvReac Type Severity Reaction Status Date / Time No Known Allergies Allergy Verified 10/29/19 12:56 Home Medications Medication Instructions Recorded Confirmed Last Taken Type AtorvaSTATin [Lipitor] 10 mg PO QHS 10/20/19 10/20/19 Unknown History Ergocalciferol (Vitamin D2) 50,000 unit PO QWEEK 10/20/19 10/20/19 Unknown H istory [Vitamin D2] Gabapentin [Neurontin] 200 mg PO BID 10/20/19 10/20/19 Unknown History HYDROcodone/APAP 7.5-325 [[place]ie 7.5 mg PO Q12HR PRN 10/20/19 10/20/19 Unknown History 7.5-325 mg TAB] Losartan [Cozaar] 50 mg PO DAILY 10/20/19 10/20/19 Unknown History Nortriptyline [Pamelor] 10 mg PO QHS 10/20/19 10/20/19 Unknown History Review of Systems ROS unobtainable: due to mental status Exam - Constitutional Vitals: Temp Pulse Resp BP Pulse Ox 98.6 F 84 17 162/62 99 10/29/19 12:57 10/29/19 16:00 10/29/19 16:00 10/29/19 16:00 10/29/19 16:00 General appearance: Present: mild distress - EENT Eyes: Present: PERRL ENT: hearing intact, clear oral mucosa - Neck Neck: Present: supple, normal ROM - Respiratory Respiratory effort: normal Respiratory: bilateral: CTA - Cardiovascular Heart Sounds: Present: S1 & S2. Absent: rub, click - Extremities Extremities: pulses symmetrical, No edema Peripheral Pulses: within normal limits - Abdominal General gastrointestinal: Present: soft, non-tender, non-distended, normal bowel sounds Female genitourinary: Present: normal - Integumentary Integumentary: Present: clear, warm, dry - Musculoskeletal Musculoskeletal: right sided weakness, left sided weakness - Psychiatric Psychiatric: no appropriate mood/affect, no memory intact, cooperative - Neurologic Neurologic: CNII-XII intact, no moves all extremities, no gait normal HEART Score - HEART Score Troponin: Troponin T < 0.010 ng/mL (0.00-0.029) 10/29/19 14:25 Results - Labs CBC & Chem 7: 10/29/19 14:25 10/29/19 14:25 Labs: Abnormal lab results 10/29/19 10/29/19 10/29/19 Range/Units 14:25 14:25 14:25 Hgb 14.7 H (10.1-14.3) gm/dl Hct 45.0 H (30.3-42.9) % [place] % (Auto) 7.9 H (0.0-7.3) % Seg Neutrophils % 77.1 H (40.0-70.0) % Thrombin Time (15.1-19.6) Sec. BUN 26 H (7-17) mg/dL Creatinine 0.3 L (0.6-1.2) mg/dL Glucose 120 H (65-100) mg/dL Magnesium 2.40 H (1.7-2.3) mg/dL Albumin 3.8 L (3.9-5) g/dL 10/29/19 Range/Units 14:25 Hgb (10.1-14.3) gm/dl Hct (30.3-42.9) % [place] % (Auto) (0.0-7.3) % Seg Neutrophils % (40.0-70.0) % Thrombin Time 14.8 L (15.1-19.6) Sec. BUN (7-17) mg/dL Creatinine (0.6-1.2) mg/dL Glucose (65-100) mg/dL Magnesium (1.7-2.3) mg/dL Albumin (3.9-5) g/dL Assessment and Plan - Patient Problems (1) CVA (cerebral vascular accident) Current Visit: Yes Status: Acute Qualifiers: CVA mechanism: unspecified Qualified Code(s): I63.9 - Cerebral infarction, unspecified Plan to address problem: Stroke protocol: CT head, neuro check, antiplatelet therapy, physical therapy consulted, Occupational Therapy consulted, echocardiogram, carotid duplex, patient is outside the therapeutic window for TPA therapy. (2) Metabolic encephalopathy Current Visit: Yes Status: Acute Plan to address problem: Chronic, supportive care, neuro check, seizure precaution, aspiration precautions. (3) Vascular dementia Current Visit: Yes Status: Acute Qualifiers: Dementia behavioral disturbance: without behavioral disturbance Qualified Code(s): F01.50 - Vascular dementia without behavioral disturbance Plan to address problem: Supportive care, neuro check. (4) Cerebral atherosclerosis Current Visit: Yes Status: Acute Plan to address problem: Supportive care, risk factor reduction therapy, antiplatelet therapy. (5) Hypertension Current Visit: Yes Status: Acute Qualifiers: Hypertension type: essential hypertension Qualified Code(s): I10 - Essential (primary) hypertension Plan to address problem: Monitor blood pressure every shift, continue medical management. (6) Hyperlipidemia Current Visit: Yes Status: Acute Qualifiers: Hyperlipidemia type: mixed hyperlipidemia Qualified Code(s): E78.2 - Mixed hyperlipidemia Plan to address problem: Risk factor reduction therapy, statin therapy is indicated, low-cholesterol diet. (7) DVT prophylaxis Current Visit: No Status: Acute Plan to address problem: SCD to bilateral lower extremities while in bed, (8) Advance care planning Current Visit: Yes Status: Acute Plan to address problem: Disease education conducted, patient is full code, prognosis discussed, +30 minutes.
[2019-10-29] MEDS ORDERED: ACETAMINOPHEN 325 MG TAB PO PRN (16:50)
[2019-10-29] MEDS ORDERED: ONDANSETRON 4 MG/2 ML INJ IV PRN (16:50)
[2019-10-29] MEDS ORDERED: MAGNESIUM HYDROXIDE (MOM) ORAL LIQD UDC PO PRN (16:50)
[2019-10-29] MEDS ORDERED: METOCLOPRAMIDE 10 MG TAB PO PRN (16:50)
[2019-10-29] MEDS ORDERED: PROMETHAZINE 25 MG RECT SUPP PR PRN (16:50)
[2019-10-30] MEDS: ASPIRIN 325 MG TAB PO SCH (09:11)
--- NOTE | 2019-10-30 10:33 | Vascular Lab Report ---
"DUPLEX DOPPLER ULTRASOUND CAROTID, BILATERAL INDICATION: stroke. FINDINGS: RIGHT CAROTID: Severe plaque Right CCA velocity: 35 cm/sec. Right ICA peak systolic velocity: 0 cm/sec. Right Vertebral Artery: Antegrade flow. LEFT CAROTID: Mild plaque Left CCA velocity: 71 cm/sec. Left ICA peak systolic velocity: 99 cm/sec. ICA/CCA PSV Ratio: 1.4. Left Vertebral Artery: Antegrade flow. IMPRESSION: 1. Right Internal Carotid Artery: Appears occluded 2. Left Internal Carotid Artery: Less than 50% diameter stenosis. CRITICAL RESULT: The technologist called this report to patient's nurse Lashon at time 1006 Eastern time. Report w as confirmed. Velocity criteria are extrapolated from diameter data as defined by the Society of Radiologists in Ul trasound Consensus Conference, Radiology 2003; 229;340-346. Degree of Stenosis (%) || ICA PSV (cm/sec) || Plaque estimate (%) || ICA/CCA PSV Ratio Normal <125 None <2.0 <50 <125 <50 <2.0 50-69 125-230 50 2.0-4.0 70 but less than 100 >230 50 >4.0 Near occlusion High, low, or none visible variable Total occlusion None visible; no lumen N/A Signer Name: Gabino Wright MD Signed: 10/30/2019 10:28 AM Workstation Name: [email or web address]"
[2019-10-30 12:44] LABS: Chol/HDL Ratio 3.66 %
--- NOTE | 2019-10-30 12:59 | Consultation ---
History of Present Illness - Reason for Consult Consult date: 10/30/19 Stroke Requesting physician: ALLEN SAUNDERS - History of Present Illness 73 YO Female with HTN, CVA with RHP, Dementia, HLD presents to ED for evaluation. Patient states that "I feel sick". No additional history obtainable. Patient family reports that patient has experienced new onset left arm weakness, and slurred speech that began on yesterday around 1200 hrs. EMS notified and upon arrival the patient was found to be in distress. A code stroke was called and the patient was subsequently transported to [facility] for further care and evaluation of the aforementioned symptoms. Patient seen and evaluated in the emergency department. Lab and imaging studies reviewed. Patient found to have clinical symptoms consistent with CVA and was admitted to medical floor and initiated on stroke protocol. Patient is outside the therapeutic window for TPA. No further history obtainable. Prior admission on 10/22/2019 reviewed. All medication listed at time of admission has been reconciled. Advanced care planning conducted in the emergency department. Patient is confused at the time of my exam but has a positive gag reflex and is able to protect her airway without difficulty. Vascular consulted for CVA with right internal artery occlusion. Reviewed ultrasound which demonstrated an occluded right internal carotid artery. No prior ultrasounds or imaging of the carotids available, but prior CT scan did not demonstrate the recent stroke seen on the new CT of the brain. Past History Past Medical History: hypertension, hyperlipidemia, stroke Past Surgical History: Other (Right shoulder surgery) Social history: single, lives with family. denies: smoking, alcohol abuse, prescription drug abuse Family history: hypertension Medications and Allergies Allergies Allergy/AdvReac Type Severity Reaction Status Date / Time No Known Allergies Allergy Verified 10/29/19 12:56 Home Medications Medication Instructions Recorded Confirmed Last Taken Type AtorvaSTATin [Lipitor] 10 mg PO QHS 10/20/19 10/20/19 Unknown History Ergocalciferol (Vitamin D2) 50,000 unit PO QWEEK 10/20/19 10/20/19 Unknown History [Vitamin D2] Gabapentin [Neurontin] 200 mg PO BID 10/20/19 10/20/19 Unknown History HYDROcodone/APAP 7.5-325 [[place] 7.5 mg PO Q12HR PRN 10/20/19 10/20/19 Unknown History 7.5-325 mg TAB] Losartan [Cozaar] 50 mg PO DAILY 10/20/19 10/20/19 Unknown History Nortriptyline [Pamelor] 10 mg PO QHS 10/20/19 10/20/19 Unknown History Active Meds: Active Medications Acetaminophen (Tylenol) 650 mg PO Q4H PRN PRN Reason: Pain, Mild (1-3) Aspirin (Aspirin) 325 mg PO QDAY [facility] Last Admin: 10/30/19 09:11 Dose: 325 mg Documented by: Atorvastatin Calcium (Lipitor) 40 mg PO QHS [facility] Last Admin: 10/29/19 21:14 Dose: Not Given Documented by: Bisacodyl (Dulcolax) 10 mg [place] QDAY PRN PRN Reason: Constipation Magnesium Hydroxide (Milk Of Magnesia) 30 ml PO Q4H PRN PRN Reason: Constipation Metoclopramide HCl (Reglan) 10 mg PO Q6H PRN PRN Reason: Nausea And Vomiting Ondansetron HCl (Zofran) 4 mg IV Q8H PRN PRN Reason: Nausea And Vomiting Promethazine HCl (Phenergan) 25 mg NC Q6H PRN PRN Reason: Nausea And Vomiting Sodium Chloride (Sodium Chloride Flush Syringe 10 Ml) 10 ml IV PRN PRN PRN Reason: LINE FLUSH Review of Systems All systems: negative (see HPI) Exam - Constitutional Vitals: Temp Pulse Resp BP Pulse Ox 99.0 F 81 18 149/70 96 10/30/19 07:44 10/30/19 07:44 10/30/19 07:44 10/30/19 07:44 10/30/19 07:44 General appearance: Present: no acute distress - EENT Eyes: Present: EOM intact ENT: hearing intact - Extremities Extremities: normal temperature, normal color - Musculoskeletal Musculoskeletal: left sided weakness - Psychiatric Psychiatric: appropriate mood/affect, intact judgment & insight, cooperative - Neurologic Neurologic: other (moves right leg, left leg just against gravity, moves right arm, left arm just against gravity) Results - Labs CBC & Chem 7: 10/29/19 14:25 10/29/19 14:25 Labs: Abnormal lab results 10/29/19 10/29/19 10/29/19 Range/Units 14:25 14:25 14:25 Hgb 14.7 H (10.1-14.3) gm/dl Hct 45.0 H (30.3-42.9) % [place] % (Auto) 7.9 H (0.0-7.3) % Seg Neutrophils % 77.1 H (40.0-70.0) % Thrombin Time (15.1-19.6) Sec. BUN 26 H (7-17) mg/dL Creatinine 0.3 L (0.6-1.2) mg/dL Glucose 120 H (65-100) mg/dL Magnesium 2.40 H (1.7-2.3) mg/dL Albumin 3.8 L (3.9-5) g/dL Cholesterol (50-199) mg/dL LDL Cholesterol Direct (50-130) mg/dL 10/29/19 10/30/19 Range/Units 14:25 12:07 Hgb (10.1-14.3) gm/dl Hct (30.3-42.9) % [place] % (Auto) (0.0-7.3) % Seg Neutrophils % (40.0-70.0) % Thrombin Time 14.8 L (15.1-19.6) Sec. BUN (7-17) mg/dL Creatinine (0.6-1.2) mg/dL Glucose (65-100) mg/dL Magnesium (1.7-2.3) mg/dL Albumin (3.9-5) g/dL Cholesterol 205 H (50-199) mg/dL LDL Cholesterol Direct 141 H (50-130) mg/dL - Imaging and Cardiology Venous US: report reviewed, image reviewed (Carotid) Assessment and Plan 73-year-old female with right internal carotid artery occlusion and stroke. Unfortunately, the patient has suffered a stroke with a right internal carotid artery occlusion. Chronicity of right internal carotid artery occlusion is unknown but likely rec ent given her left sided neurologic deficits. Regardless, no vascular intervention required. Recommend medical therapy for stroke including antiplatelet therapy and high- dose statin therapy. Consider neurology consult. Will likely need rehabilitation. Follow-up as outpatient in 2 to 4 weeks and repeat carotid ultrasounds can be performed to monitor the contralateral side to prevent further morbidity. This will likely be monitored every 6 months.
--- NOTE | 2019-10-30 13:33 | Progress Note ---
Assessment and Plan - Patient Problems (1) CVA (cerebral vascular accident) Current Visit: Yes Status: Acute Qualifiers: CVA mechanism: unspecified Qualified Code(s): I63.9 - Cerebral infarction, unspecified Plan to address problem: Stroke protocol: CT head reviewed, neuro check, antiplatelet therapy, physical therapy consulted, Occupational Therapy consulted, echocardiogram, carotid duplex reviewed and reveals carotid stenosis. Vascular surgery consulted. Antiplatelet therapy. No surgical intervention at this time. (2) Metabolic encephalopathy Current Visit: Yes Status: Acute Plan to address problem: Chronic, supportive care, neuro check, seizure precaution, aspiration precautions. (3) Vascular dementia Current Visit: Yes Status: Acute Qualifiers: Dementia behavioral disturbance: without behavioral disturbance Qualified Code(s): F01.50 - Vascular dementia without behavioral disturbance Plan to address problem: Supportive care, neuro check. (4) Cerebral atherosclerosis Current Visit: Yes Status: Acute Plan to address problem: Supportive care, risk factor reduction therapy, antiplatelet therapy. (5) Hypertension Current Visit: Yes Status: Acute Qualifiers: Hypertension type: essential hypertension Qualified Code(s): I10 - Essential (primary) hypertension Plan to address problem: Monitor blood pressure every shift, continue medical management. (6) Hyperlipidemia Current Visit: Yes Status: Acute Qualifiers: Hyperlipidemia type: mixed hyperlipidemia Qualified Code(s): E78.2 - Mixed hyperlipidemia Plan to address problem: Risk factor reduction therapy, statin therapy is indicated, low-cholesterol diet. (7) DVT prophylaxis Current Visit: No Status: Acute Plan to address problem: SCD to bilateral lower extremities while in bed, (8) Advance care planning Current Visit: Yes Status: Acute Plan to address problem: Disease education conducted, patient is full code, prognosis discussed, +30 minutes. History Interval history: 73 YO Female HD #2 with CVA and Carotid stenosis. Patient resting comfortably in bed. Physical therapy and Occupational Therapy consulted. Patient denies pain. No reported nursing events. Case management consulted for discharge planning. Hospitalist Physical - Constitutional Vitals: Temp Pulse Resp BP Pulse Ox 98.6 F 76 18 152/60 98 10/30/19 11:08 10/30/19 11:08 10/30/19 11:08 10/30/19 11:08 10/30/19 11:08 General appearance: Present: mild distress - EENT Eyes: Present: PERRL ENT: hearing intact - Neck Neck: Present: supple - Respiratory Respiratory: bilateral: CTA - Cardiovascular Rhythm: regular - Extremities Extremities: no ischemia Peripheral Pulses: within normal limits - Abdominal General gastrointestinal: soft, non-tender, non-distended - Psychiatric Psychiatric: cooperative - Neurologic Neurologic: CNII-XII intact, focal deficits, no gait normal HEART Score - HEART Score Troponin: Troponin T < 0.010 ng/mL (0.00-0.029) 10/29/19 14:25 Results - Labs CBC & Chem 7: 10/29/19 14:25 10/29/19 14:25 Labs: Laboratory Last Values WBC 9.1 K/mm3 (4.5-11.0) 10/29/19 14:25 RBC 4.81 M/mm3 (3.65-5.03) 10/29/19 14:25 Hgb 14.7 gm/dl (10.1-14.3) H 10/29/19 14:25 Hct 45.0 % (30.3-42.9) H 10/29/19 14:25 MCV 93 fl (79-97) 10/29/19 14:25 MCH 31 pg (28-32) 10/29/19 14:25 MCHC 33 % (30-34) 10/29/19 14:25 RDW 14.8 % (13.2-15.2) 10/29/19 14:25 Plt Count 179 K/mm3 (140-440) 10/29/19 14:25 Lymph % (Auto) 14.5 % (13.4-35.0) 10/29/19 14:25 [place] % (Auto) 7.9 % (0.0-7.3) H 10/29/19 14:25 Eos % (Auto) 0.3 % (0.0-4.3) 10/29/19 14:25 Baso % (Auto) 0.2 % (0.0-1.8) 10/29/19 14:25 Lymph # 1.3 K/mm3 (1.2-5.4) 10/29/19 14:25 [place] # 0.7 K/mm3 (0.0-0.8) 10/29/19 14:25 Eos # 0.0 K/mm3 (0.0-0.4) 10/29/19 14:25 Baso # 0.0 K/mm3 (0.0-0.1) 10/29/19 14:25 Seg Neutrophils % 77.1 % (40.0-70.0) H 10/29/19 14:25 Seg Neutrophils # 7.0 K/mm3 (1.8-7.7) 10/29/19 14:25 PT 12.5 Sec. (12.2-14.9) 10/29/19 14:25 INR 0.92 (0.87-1.13) 10/29/19 14:25 APTT 29.5 Sec. (24.2-36.6) 10/29/19 14:25 Thrombin Time 14.8 Sec. (15.1-19.6) L 10/29/19 14:25 Sodium 138 mmol/L (137-145) 10/29/19 14:25 Potassium 3.8 mmol/L (3.6-5.0) 10/29/19 14:25 Chloride 101.3 mmol/L (98-107) 10/29/19 14:25 Carbon Dioxide 23 mmol/L (22-30) 10/29/19 14:25 Anion Gap 18 mmol/L 10/29/19 14:25 BUN 26 mg/dL (7-17) H 10/29/19 14:25 Creatinine 0.3 mg/dL (0.6-1.2) L 10/29/19 14:25 Estimated GFR > 60 ml/min 10/29/19 14:25 BUN/Creatinine Ratio 87 % 10/29/19 14:25 Glucose 120 mg/dL (65-100) H 10/29/19 14:25 Calcium 9.1 mg/dL (8.4-10.2) 10/29/19 14:25 Magnesium 2.40 mg/dL (1.7-2.3) H 10/29/19 14:25 Total Bilirubin 0.90 mg/dL (0.1-1.2) 10/29/19 14:25 Direct Bilirubin < 0.2 mg/dL (0-0.2) 10/29/19 14:25 Indirect Bilirubin 0.7 mg/dL 10/29/19 14:25 AST 18 units/L (5-40) 10/29/19 14:25 ALT 23 units/L (7-56) 10/29/19 14:25 Alkaline Phosphatase 74 units/L (35-129) 10/29/19 14:25 Troponin T < 0.010 ng/mL (0.00-0.029) 10/29/19 14:25 NT-Pro-B Natriuret Pep 36.70 pg/mL (0-900) 10/29/19 14:25 Total Protein 6.5 g/dL (6.3-8.2) 10/29/19 14:25 Albumin 3.8 g/dL (3.9-5) L 10/29/19 14:25 Albumin/Globulin Ratio 1.4 % 10/29/19 14:25 Triglycerides 75 mg/dL (2-149) 10/30/19 12:07 Cholesterol 205 mg/dL (50-199) H 10/30/19 12:07 LDL Cholesterol Direct 141 mg/dL (50-130) H 10/30/19 12:07 HDL Cholesterol 56 mg/dL (40-59) 10/30/19 12:07 Cholesterol/HDL Ratio 3.66 % 10/30/19 12:07 [place]/IV: Voiding Method External Female Catheter IV Catheter Type [Right Chest] INT / Saline Lock Active Medications - Current Medications Current Medications: Generic Name Dose Route Start Last Admin Trade Name Freq PRN Reason Stop Dose Admin Acetaminophen 650 mg 10/29/19 16:50 Tylenol PO Q4H PRN Pain, Mild (1-3) Aspirin 325 mg 10/30/19 10:00 10/30/19 09:11 Aspirin PO 325 mg QDAY [facility] Administration Atorvastatin Calcium 40 mg 10/29/19 22:00 10/29/19 21:14 Lipitor PO Not Given QHS [facility] Bisacodyl 10 mg 10/29/19 16:50 Dulcolax [place] QDAY PRN Constipation Magnesium Hydroxide 30 ml 10/29/19 16:50 Milk Of Magnesia PO Q4H PRN Constipation Metoclopramide HCl 10 mg 10/29/19 16:50 Reglan PO Q6H PRN Nausea And Vomiting Ondansetron HCl 4 mg 10/29/19 16:50 Zofran IV Q8H PRN Nausea And Vomiting Promethazine HCl 25 mg 10/29/19 16:50 Phenergan [place] Q6H PRN Nausea And Vomiting Sodium Chloride 10 ml 10/29/19 16:50 Sodium Chloride Flush Syringe 10 Ml IV PRN PRN LINE FLUSH
[2019-10-31] MEDS: ASPIRIN 325 MG TAB PO SCH (09:55)
--- NOTE | 2019-10-31 16:37 | Progress Note ---
Assessment and Plan Assessment and plan: 73 YO Female with CVA and Carotid stenosis. Patient resting comfortably in bed. Physical therapy and Occupational Therapy consulted. Patient denies pain. No reported nursing events. Case management consulted for discharge planning CT head IMPRESSION: 1. No acute intracranial abnormality. 2. Generalized cerebral volume loss and sequela of chronic microvascular ischemia, worse on the right. (1) CVA (cerebral vascular accident) Current Visit: Yes Status: Acute Qualifiers: CVA mechanism: unspecified Qualified Code(s): I63.9 - Cerebral infarction, unspecified Plan to address problem: Stroke protocol: CT head reviewed, neuro check, antiplatelet therapy, physical therapy consulted, Occupational Therapy consulted, echocardiogram, carotid duplex reviewed and reveals carotid stenosis. Vascular surgery consulted. Antiplatelet therapy. No surgical intervention at this time. Will check MRI brain as patient still have perisent left sided weakness. (2) Metabolic encephalopathy Current Visit: Yes Status: Acute Plan to address problem: Chronic, supportive care, neuro check, seizure precaution, aspiration precau tions. (3) Vascular dementia Current Visit: Yes Status: Acute Qualifiers: Dementia behavioral disturbance: without behavioral disturbance Qualified Code(s): F01.50 - Vascular dementia without behavioral disturbance Plan to address problem: Supportive care, neuro check. (4) Cerebral atherosclerosis Current Visit: Yes Status: Acute Plan to address problem: Supportive care, risk factor reduction therapy, antiplatelet therapy. No surgical intervention per surgery team (5) Hypertension Current Visit: Yes Status: Acute Qualifiers: Hypertension type: essential hypertension Qualified Code(s): I10 - Essential (primary) hypertension Plan to address problem: Monitor blood pressure every shift, continue medical management. (6) Hyperlipidemia Current Visit: Yes Status: Acute Qualifiers: Hyperlipidemia type: mixed hyperlipidemia Qualified Code(s): E78.2 - Mixed hyperlipidemia Plan to address problem: Risk factor reduction therapy, statin therapy is indicated, low-cholesterol diet. (7) DVT prophylaxis Current Visit: No Status: Acute Plan to address problem: SCD to bilateral lower extremities while in bed, (8) Advance care planning Current Visit: Yes Status: Acute Plan to address problem: Disease education conducted, patient is full code, prognosis discussed, +30 minutes. 10/30: I have discussed with the son plan of care, he is considering Second opinion, Will continue Statin, ASA, await MRI, PT/OT recommending SNF History Interval history: Patient seen and examined, still with left sided weakness. No new complaints. Hospitalist Physical - Physical exam Narrative exam: General appearance: Present: No distress - EENT Eyes: Present: PERRL ENT: hearing intact - Neck Neck: Present: supple - Respiratory Respiratory: bilateral: CTA - Cardiovascular Rhythm: regular - Extremities Extremities: no ischemia Peripheral Pulses: within normal limits - Abdominal General gastrointestinal: soft, non-tender, non-distended - Psychiatric Psychiatric: cooperative - Neurologic Neurologic: CNII-XII intact,other (moves right leg, left leg just against gravity, moves right arm, left arm just against gravity) - Constitutional Vitals: Temp Pulse Resp BP Pulse Ox 98.0 F 86 18 164/69 98 10/31/19 07:35 10/31/19 10:00 10/31/19 10:00 10/31/19 07:35 10/31/19 10:00 General appearance: Present: mild distress HEART Score - HEART Score Troponin: Troponin T < 0.010 ng/mL (0.00-0.029) 10/29/19 14:25 Results - Labs CBC & Chem 7: 10/29/19 14:25 10/29/19 14:25 Labs: Laboratory Last Values WBC 9.1 K/mm3 (4.5-11.0) 10/29/19 14:25 RBC 4.81 M/mm3 (3.65-5.03) 10/29/19 14:25 Hgb 14.7 gm/dl (10.1-14.3) H 10/29/19 14:25 Hct 45.0 % (30.3-42.9) H 10/29/19 14:25 MCV 93 fl (79-97) 10/29/19 14:25 MCH 31 pg (28-32) 10/29/19 14:25 MCHC 33 % (30-34) 10/29/19 14:25 RDW 14.8 % (13.2-15.2) 10/29/19 14:25 Plt Count 179 K/mm3 (140-440) 10/29/19 14:25 Lymph % (Auto) 14.5 % (13.4-35.0) 10/29/19 14:25 [place] % (Auto) 7.9 % (0.0-7.3) H 10/29/19 14:25 Eos % (Auto) 0.3 % (0.0-4.3) 10/29/19 14:25 Baso % (Auto) 0.2 % (0.0-1.8) 10/29/19 14:25 Lymph # 1.3 K/mm3 (1.2-5.4) 10/29/19 14:25 [place] # 0.7 K/mm3 (0.0-0.8) 10/29/19 14:25 Eos # 0.0 K/mm3 (0.0-0.4) 10/29/19 14:25 Baso # 0.0 K/mm3 (0.0-0.1) 10/29/19 14:25 Seg Neutrophils % 77.1 % (40.0-70.0) H 10/29/19 14:25 Seg Neutrophils # 7.0 K/mm3 (1.8-7.7) 10/29/19 14:25 PT 12.5 Sec. (12.2-14.9) 10/29/19 14:25 INR 0.92 (0.87-1.13) 10/29/19 14:25 APTT 29.5 Sec. (24.2-36.6) 10/29/19 14:25 Thrombin Time 14.8 Sec. (15.1-19.6) L 10/29/19 14:25 Sodium 138 mmol/L (137-145) 10/29/19 14:25 Potassium 3.8 mmol/L (3.6-5.0) 10/29/19 14:25 Chloride 101.3 mmol/L (98-107) 10/29/19 14:25 Carbon Dioxide 23 mmol/L (22-30) 10/29/19 14:25 Anion Gap 18 mmol/L 10/29/19 14:25 BUN 26 mg/dL (7-17) H 10/29/19 14:25 Creatinine 0.3 mg/dL (0.6-1.2) L 10/29/19 14:25 Estimated GFR > 60 ml/min 10/29/19 14:25 BUN/Creatinine Ratio 87 % 10/29/19 14:25 Glucose 120 mg/dL (65-100) H 10/29/19 14:25 Calcium 9.1 mg/dL (8.4-10.2) 10/29/19 14:25 Magnesium 2.40 mg/dL (1.7-2.3) H 10/29/19 14:25 Total Bilirubin 0.90 mg/dL (0.1-1.2) 10/29/19 14:25 Direct Bilirubin < 0.2 mg/dL (0-0.2) 10/29/19 14:25 Indirect Bilirubin 0.7 mg/dL 10/29/19 14:25 AST 18 units/L (5-40) 10/29/19 14:25 ALT 23 units/L (7-56) 10/29/19 14:25 Alkaline Phosphatase 74 units/L (35-129) 10/29/19 14:25 Troponin T < 0.010 ng/mL (0.00-0.029) 10/29/19 14:25 NT-Pro-B Natriuret Pep 36.70 pg/mL (0-900) 10/29/19 14:25 Total Protein 6.5 g/dL (6.3-8.2) 10/29/19 14:25 Albumin 3.8 g/dL (3.9-5) L 10/29/19 14:25 Albumin/Globulin Ratio 1.4 % 10/29/19 14:25 Triglycerides 75 mg/dL (2-149) 10/30/19 12:07 Cholesterol 205 mg/dL (50-199) H 10/30/19 12:07 LDL Cholesterol Direct 141 mg/dL (50-130) H 10/30/19 12:07 HDL Cholesterol 56 mg/dL (40-59) 10/30/19 12:07 Cholesterol/HDL Ratio 3.66 % 10/30/19 12:07 - Diagnostic Impressions Diagnostic Impressions: Echocardiogram Limited Views 10/29/19 16:52 Transthoracic Echocardiogram Indication: Stroke BP: 149/70 HR: 80 Conclusions *Limted study for bubble study: * *Normal bubble study without evidence of intracardiac or intrapulmonary communication. *Global left ventricular wall motion and contractility are within normal limits. *The estimated ejection fraction is 55-60%. *There is no pericardial effusion. Findings Left Ventricle: Global left ventricular wall motion and contractility are within normal limits. Global left ventricular systolic function is normal. The estimated ejection fraction is 55-60%. Right Atrium: No atrial septal defected is demonstrated by agitated saline contrast. Aortic Valve: Mild aortic leaflet calcification is visualized. Mitral Valve: Mild mitral leaflet calcification is visualized. Tricuspid Valve: The tricuspid valve leaflets are normal. Pulmonic Valve: The pulmonic valve is not well visualized. Pericardium: There is no pericardial effusion. Venous: The inferior vena cava appears normal. Contrast: Intravenous agitated saline contrast was used to assess intracardiac shunting. [place]/IV: Voiding Method External Female Catheter IV Catheter Type [Right Chest] INT / Saline Lock Active Medications - Current Medications Current Medications: Generic Name Dose Route Start Last Admin Trade Name Freq PRN Reason Stop Dose Admin Acetaminophen 650 mg 10/29/19 16:50 Tylenol PO Q4H PRN Pain, Mild (1-3) Aspirin 325 mg 10/30/19 10:00 10/31/19 09:55 Aspirin PO 325 mg QDAY MARYCRUZ Administration Atorvastatin Calcium 40 mg 10/29/19 22:00 10/30/19 21:52 Lipitor PO 40 mg QHS MARYCRUZ Administration Bisacodyl 10 mg 10/29/19 16:50 Dulcolax [place] QDAY PRN Constipation Magnesium Hydroxide 30 ml 10/29/19 16:50 Milk Of Magnesia PO Q4H PRN Constipation Metoclopramide HCl 10 mg 10/29/19 16:50 Reglan PO Q6H PRN Nausea And Vomiting Ondansetron HCl 4 mg 10/29/19 16:50 Zofran IV Q8H PRN Nausea And Vomiting Promethazine HCl 25 mg 10/29/19 16:50 Phenergan [place] Q6H PRN Nausea And Vomiting Sodium Chloride 10 ml 10/29/19 16:50 Sodium Chloride Flush Syringe 10 Ml IV PRN PRN LINE FLUSH
--- NOTE | 2019-11-01 10:39 | Magnetic Resonance Report ---
MR brain wo con INDICATION / CLINICAL INFORMATION: 73 years Female; MAIN. TECHNIQUE: Multiplanar, multisequence MR images of the brain were obtained. COMPARISON: None available. FINDINGS: BRAIN / INTRACRANIAL CONTENTS: On the diffusion imaging, there are scattered patchy areas of acute in farction within the right MCA distribution, most notably involving the right frontal and parietal sub cortical regions at. There is a focus of projected along the right precentral gyrus measuring approxi mately 1.5 cm in transverse dimension. On the FLAIR sequences I, there is otherwise moderate cerebral and pontine white matter disease most consistent with microvascular angiopathy. There also appear to be a component of chronic at infarct along the right periventricular region. The diffusion imaging r eveals no further evidence of recent infarction. There is mild cerebral atrophy with associated prominence of the ventricular system. No extra-axial f luid collections or significant mass effect is identified. CRANIOCERVICAL JUNCTION: No significant abnormality. VASCULAR FLOW-VOIDS: There is heterogeneous signal within the distal right internal carotid artery co mpatible with occlusion or possibly very slow flow. The vertebral basilar system demonstrate appropri ate signal voids. ORBITS: No significant abnormality of visualized orbits. SINUSES / MASTOIDS: No significant abnormality in the visualized paranasal sinuses or mastoid air boyd ls. ADDITIONAL FINDINGS: None. IMPRESSION: 1. There are patchy areas of acute infarction within the right frontoparietal region as detailed abov e. 2. There is heterogeneous signal within the distal right ICA compatible with occlusion or possibly ve ry slow flow. Signer Name: Demetrio Abdalla MD Signed: 11/01/2019 10:35 AM Workstation Name: [id number]
[2019-11-01] MEDS: ASPIRIN 325 MG TAB PO SCH (11:06)
--- NOTE | 2019-11-01 12:26 | Discharge Summary ---
Providers - Providers Date of Admission: 10/31/19 14:28 Attending physician: NATIVIDAD WHITEHEAD MD 10/29/19 16:50 Occupational Therapy Evaluate and Treat [CONS] Routine Comment: Reason For Exam: Neuro deficits Physical Therapy Evaluation and Treat [CONS] Routine Comment: Reason For Exam: Neuro deficits 10/30/19 10:49 Consult to Physician [CONS] Routine Comment: Consulting Provider: SENG BRUNO Physician Instructions: Reason For Exam: Carotid Stenosis 10/30/19 13:13 Speech Therapy Evaluation and Treat [CONS] Routine Reason For Exam: difficulty swallowing 10/31/19 10:49 Consult to Physician [CONS] Routine Comment: Consulting Provider: ROCIO GARZON Physician Instructions: Reason For Exam: cva Primary care physician: EDDIE EASTON Hospitalization Reason for admission: CVA Condition: Stable Hospital course: 73 YO Female with CVA and Carotid stenosis. Patient resting comfortably in bed. Physical therapy and Occupational Therapy consulted. Patient denies pain. No reported nursing events. Case management consulted for discharge planning CT head IMPRESSION: 1. No acute intracranial abnormality. 2. Generalized cerebral volume loss and sequela of chronic microvascular ischemia, worse on the right. MRI: IMPRESSION: 1. There are patchy areas of acute infarction within the right frontoparietal region as detailed above. 2. There is heterogeneous signal within the distal right ICA compatible with occlusion or possibly very slow flow. -Recommend event monitoring. Discharged on Plavix and ASA with statin therapy (1) CVA (cerebral vascular accident) Current Visit: Yes Status: Acute Qualifiers: CVA mechanism: unspecified Qualified Code(s): I63.9 - Cerebral infarction, unspecified Plan to address problem: Stroke protocol: CT head reviewed, neuro check, antiplatelet therapy, physical therapy consulted, Occupational Therapy consulted, echocardiogram, carotid duplex reviewed and reveals carotid stenosis. Vascular surgery consulted. Antiplatelet therapy. No surgical intervention at this time. MRI shows patchy areas of acute infarct within the right frontoparietal region. The distal right ICA compatible with occlusion of possible's very slow flow. Again patient was evaluated by interventional radiologist and felt that there would be no benefit to any carotid surgery at this time. And recommended an event monitor and also Plavix and aspirin with statin on discharge patient was previously on low-dose statin this has been increased have discussed with the son. Patient is going to rehab due to persistent left hemiplegia. (2) Metabolic encephalopathy Current Visit: Yes Status: Acute Plan to address problem: Chronic, supportive care, neuro check, seizure precaution, aspiration precautions. (3) Vascular dementia Current Visit: Yes Status: Acute Qualifiers: Dementia behavioral disturbance: without behavioral disturbance Qualified Code(s): F01.50 - Vascular dementia without behavioral disturbance Plan to address problem: Supportive care, neuro check. (4) Cerebral atherosclerosis Current Visit: Yes Status: Acute Plan to address problem: Supportive care, risk factor reduction therapy, antiplatelet therapy. No surgical intervention per surgery team (5) Hypertension Current Visit: Yes Status: Acute Qualifiers: Hypertension type: essential hypertension Qualified Code(s): I10 - Essential (primary) hypertension Plan to address problem: Monitor blood pressure every shift, continue medical management. (6) Hyperlipidemia Current Visit: Yes Status: Acute Qualifiers: Hyperlipidemia type: mixed hyperlipidemia Qualified Code(s): E78.2 - Mixed hyperlipidemia Plan to address problem: Risk factor reduction therapy, statin therapy is indicated, low-cholesterol diet. (7) left-sided hemiplegia Secondary to CVA , (8) Advance care planning Current Visit: Yes Status: Acute Plan to address problem: Disease education conducted, patient is full code, prognosis discussed, +30 minutes. 10/30: I have discussed with the son plan of care, he is considering Second opinion, Will continue Statin, ASA, await MRI, PT/OT recommending SNF Disposition: DC-01 TO HOME OR SELFCARE Time spent for discharge: 35 MINS Core Measure Documentation - Palliative Care Palliative Care/ Comfort Measures: Not Applicable - Core Measures Any of the following diagnoses?: stroke - Stroke Discharge Requirements Statin for LDL = or >70 mg/dl on DC: Yes Anticoag for atrial fib/atrial flutter: Not Applicable Antithrombotic for ischemic stroke: Yes Exam - Physical Exam Narrative exam: General appearance: Present: No distress - EENT Eyes: Present: PERRL ENT: hearing intact - Neck Neck: Present: supple - Respiratory Respiratory: bilateral: CTA - Cardiovascular Rhythm: regular - Extremities Extremities: no ischemia Peripheral Pulses: within normal limits - Abdominal General gastrointestinal: soft, non-tender, non-distended - Psychiatric Psychiatric: cooperative - Neurologic Neurologic: CNII-XII intact,other (moves right leg, left leg just against gravity, moves right arm, left arm just against gravity) - Constitutional Vitals: Temp Pulse Resp BP Pulse Ox 98.6 F 80 18 161/81 95 08/12/20 03:30 11/01/19 04:00 11/01/19 03:30 11/01/19 03:30 11/01/19 09:12 Plan Activity: advance as tolerated, fall precautions Diet: low fat Special Instructions: record daily weights, record daily BP diary Durable Medical Equipment Needed Upon Discharge: other (Cardiac event monitor) Additional Instructions: Neurology eval per rehab facility policy. Recommend outpatient cardiac event monitor Follow up with: EDDIE EASTON MD [Primary Care Provider] - 7 Days ANTIONE CHURCH MD [Staff Physician] - 7 Days Prescriptions: RX: AtorvaSTATin [Lipitor] 40 mg PO QHS #30 tablet RX: Aspirin [Adult Aspirin] 81 mg PO DAILY #30 tablet. Clopidogrel [Plavix] 75 mg PO QDAY #30 tablet
--- NOTE | 2019-11-01 12:48 | Progress Note ---
Objective - Vital Sign Vital Signs - 12hr 11/01/19 11/01/19 11/01/19 03:30 04:00 09:12 Temperature 98.6 F Pulse Rate 78 80 Respiratory 18 Rate Blood Pressure 161/81 O2 Sat by Pulse 95 95 Oximetry - Laboratory Findings CBC and BMP: 10/29/19 14:25 10/29/19 14:25 Abnormal Lab Findings: Abnormal Labs 10/29/19 10/29/19 10/29/19 14:25 14:25 14:25 Hgb 14.7 H Hct 45.0 H [place] % (Auto) 7.9 H Seg Neutrophils % 77.1 H Thrombin Time BUN 26 H Creatinine 0.3 L Glucose 120 H Magnesium 2.40 H Albumin 3.8 L Cholesterol LDL Cholesterol Direct 10/29/19 10/30/19 14:25 12:07 Hgb Hct [place] % (Auto) Seg Neutrophils % Thrombin Time 14.8 L BUN Creatinine Glucose Magnesium Albumin Cholesterol 205 H LDL Cholesterol Direct 141 H
--- NOTE | 2019-11-01 16:17 | Consultation ---
History of Present Illness Chief complaint: left arm weakness History of present illness: TELE NEUROLOGY CONSULT- 73 YO Female with HTN, CVA with RHP, Dementia, HLD presents to ED for evaluation. Patient states that "I feel sick". No additional history obtainable. Patient family reports that patient has experienced new onset left arm weakness, and slurred speech that began on yesterday around 1200 hrs. EMS notified and upon arrival the patient was found to be in distress. A code stroke was called and the patient was subsequently transported to [facility] for further care and evaluation of the aforementioned symptoms. Patient seen and evaluated in the emergency department. Lab and imaging studies reviewed. Adrien shepard found to have clinical symptoms consistent with CVA and was admitted to medical floor and initiated on stroke protocol. Patient is outside the therapeutic window for TPA. No further history obtainable. Prior admission on 10/22/2019 reviewed. All medication listed at time of admission has been reconciled. Advanced care planning conducted in the emergency department. Patient is confused at the time of my exam but has a positive gag reflex and is able to protect her airway without difficulty. Past History Past Medical History: hypertension, hyperlipidemia, stroke Past Surgical History: Other (Right shoulder surgery) Social history: single, lives with family. denies: smoking, alcohol abuse, pre scription drug abuse Family history: hypertension Medications and Allergies Allergies Allergy/AdvReac Type Severity Reaction Status Date / Time No Known Allergies Allergy Verified 10/29/19 12:56 Home Medications Medication Instructions Recorded Confirmed Last Taken Type AtorvaSTATin [Lipitor] 10 mg PO QHS 10/20/19 10/20/19 Unknown History Ergocalciferol (Vitamin D2) 50,000 unit PO QWEEK 10/20/19 10/20/19 Unknown History [Vitamin D2] Gabapentin [Neurontin] 200 mg PO BID 10/20/19 10/20/19 Unknown History HYDROcodone/APAP 7.5-325 [[place] 7.5 mg PO Q12HR PRN 10/20/19 10/20/19 Unknown History 7.5-325 mg TAB] Losartan [Cozaar] 50 mg PO DAILY 10/20/19 10/20/19 Unknown History Nortriptyline [Pamelor] 10 mg PO QHS 10/20/19 10/20/19 Unknown History Past History Past Medical History: hypertension, hyperlipidemia, stroke Past Surgical History: Other (Right shoulder surgery) Social history: single, lives with family. denies: smoking, alcohol abuse, prescription drug abuse Family history: hypertension Medications and Allergies Allergies Allergy/AdvReac Type Severity Reaction Status Date / Time No Known Allergies Allergy Verified 10/29/19 12:56 Home Medications Medication Instructions Recorded Confirmed Last Taken Type Ergocalciferol (Vitamin D2) 50,000 unit PO QWEEK 10/20/19 10/20/19 Unknown History [Vitamin D2] Gabapentin 200 mg PO BID 10/20/19 10/20/19 Unknown History HYDROcodone/APAP 7.5-325 [[place] 7.5 mg PO Q12HR PRN 10/20/19 10/20/19 Unknown History 7.5-325 mg TAB] Losartan [Cozaar] 50 mg PO DAILY 10/20/19 10/20/19 Unknown History Nortriptyline [Pamelor] 10 mg PO QHS 10/20/19 10/20/19 Unknown History Aspirin [Adult Aspirin] 81 mg PO DAILY #30 tablet. 11/01/19 Unknown Rx AtorvaSTATin [Lipitor] 40 mg PO QHS #30 tablet 11/01/19 Unknown Rx Clopidogrel [Plavix] 75 mg PO QDAY #30 tablet 11/01/19 Unknown Rx Active Meds: Active Medications Acetaminophen (Tylenol) 650 mg PO Q4H PRN PRN Reason: Pain, Mild (1-3) Aspirin (Aspirin) 325 mg PO QDAY [facility] Last Admin: 11/01/19 11:06 Dose: 325 mg Documented by: Atorvastatin Calcium (Lipitor) 40 mg PO QHS [facility] Last Admin: 10/31/19 21:33 Dose: 40 mg Documented by: Bisacodyl (Dulcolax) [address] QDAY PRN PRN Reason: Constipation Magnesium Hydroxide (Milk Of Magnesia) 30 ml PO Q4H PRN PRN Reason: Constipation Metoclopramide HCl (Reglan) 10 mg PO Q6H PRN PRN Reason: Nausea And Vomiting Ondansetron HCl (Zofran) 4 mg IV Q8H PRN PRN Reason: Nausea And Vomiting Promethazine HCl (Phenergan) [address] Q6H PRN PRN Reason: Nausea And Vomiting Sodium Chloride (Sodium Chloride Flush Syringe 10 Ml) 10 ml IV PRN PRN PRN Reason: LINE FLUSH Review of Systems All systems: negative (left arm weakness) Physical Examination - Vital Signs Vital Signs: Vital Signs Pulse Ox 100 10/29/19 12:52 - Physical Exam Narrative exam: Neurology examination: MS- does not speak polish. but she is alert awake. left central facial weakness. does not move left ue. by nurse- alonzo and eomi. Laboratory Results - last 72 hr 10/30/19 10/31/19 12:07 10:15 Triglycerides 75 Cholesterol 205 H LDL Cholesterol Direct 141 H HDL Cholesterol 56 Cholesterol/HDL Ratio 3.66 Coronavirus (PCR) Negative Results - Laboratory Findings CBC and BMP: 10/29/19 14:25 10/29/19 14:25 Abnormal Lab Findings: Abnormal Labs 10/29/19 10/29/19 10/29/19 14:25 14:25 14:25 Hgb 14.7 H Hct 45.0 H [place] % (Auto) 7.9 H Seg Neutrophils % 77.1 H Thrombin Time BUN 26 H Creatinine 0.3 L Glucose 120 H Magnesium 2.40 H Albumin 3.8 L Cholesterol LDL Cholesterol Direct 10/29/19 10/30/19 14:25 12:07 Hgb Hct [place] % (Auto) Seg Neutrophils % Thrombin Time 14.8 L BUN Creatinine Glucose Magnesium Albumin Cholesterol 205 H LDL Cholesterol Direct 141 H Assessment and Plan right mca territory patchy acute stroke. mri brain done. hypertension, hyperlipidemia, c.doppler and echo nl plan- cont. asa 325 mg q day and lipitor 49 mg q hs. permissive htn mgt. cta head and neck. rehab/pt/ot. thanks.
[2019-11-01 17:02] VITALS: BP 162/71
== END 2019-11-01 18:00 | disposition home or self-care (01) ==
LOC: ED 12:20 → 4A 16:50 → INTOOBSV 10-31 14:28 → OBSVTOIN 10-31 14:28
PROVIDERS: ADMIT Internal Medicine; ATTEND Internal Medicine
DX: Z03.818 Encounter for observation for suspected exposure to other biological agents ruled out (principal); I63.9 Cerebral infarction, unspecified; I67.2 Cerebral atherosclerosis; F01.50 Vascular dementia, unspecified severity, without behavioral disturbance, psychotic disturbance, mood disturbance, and anxiety; G93.41 Metabolic encephalopathy; I69.354 Hemiplegia and hemiparesis following cerebral infarction affecting left non-dominant side; I65.21 Occlusion and stenosis of right carotid artery; I10 Essential (primary) hypertension; E78.2 Mixed hyperlipidemia; I73.9 Peripheral vascular disease, unspecified; G62.9 Polyneuropathy, unspecified; E78.00 Pure hypercholesterolemia, unspecified; Z79.899 Other long term (current) drug therapy
CPT/HCPCS: 36415; 70450; 70551; 71045; 80048; 80061; 80076; 83735; 83880; 84484; 85025; 85610; 85670; 85730; 92526; 92610; 93005; 93308; 93321; 93325; 93880; 97110; 97161; 97165; 97530; 99285; A9270; G0378; U0003